=== PATIENT | male | born 1980 | race Caucasian/White ===

== ENCOUNTER 2021-08-02 08:00 | Outpatient (CLI) | payer OTHER ==
--- NOTE | 2021-08-02 17:33 | XRAY Report ---
PROCEDURE: Tib/Fib LT INDICATIONS: L LOWER LEG PX TECHNIQUE: 2 views of the tibia and fibula were acquired. COMPARISON: None FINDINGS: Bones: No fractures or dislocations. No suspicious bony lesions. Soft tissues: No suspicious soft tissue calcifications or masses. IMPRESSION: No fracture. No osseous lesion. If symptoms and/or clinical concern for pathology persists, further a ssessment with repeat plain film radiographs (7-10 days) or advanced imaging (CT, MR, bone scan) shou ld be considered. Reviewed by: Kavya Torres MD, PhD on 08/02/2021 5:32 PM PDT Approved by: Kavya Torres MD, PhD on 08/02/2021 5:32 PM PDT Station ID: [id number]
== END 2021-08-02 23:59 | disposition home or self-care (01) ==
LOC: DI.N 08:00
PROVIDERS: ATTEND Family Medicine
DX: M79.605 Pain in left leg (principal)

== ENCOUNTER 2022-08-23 02:14 | Emergency (ER) | payer OTHER ==
[2022-08-23 02:31] VITALS: BP 150/90
--- NOTE | 2022-08-23 02:33 | ED Physician Documentation ---
PD HPI URI - Stated complaint Stated Complaint: CONGESTION - Chief complaint Chief Complaint: Heent - History obtained from History obtained from: Patient - Additional information Additional information: HPI from patient. Patient c/o right maxillary sinus congestion and pain that is exacerbated with coughing and palpation (percussion). Also c/o sore throat, mild cough, rhinorrhea. Symptoms x several days but rapidly becoming markedly worse tonight. Denies dyspnea, denies fever. Review of Systems Constitutional: denies: Fever, Chills, Sweats Ears: denies: Ear pain Nose: reports: Rhinorrhea / runny nose, Congestion, Sinus pressure / pain Throat: reports: Sore throat Respiratory: reports: Cough. denies: Dyspnea PD PAST MEDICAL HISTORY - Past Medical History Past Medical History: Yes Neuro: Other Other Past Medical History: L leg sciatica - Past Surgical History Past Surgical History: No - Present Medications Home Medications: Ambulatory Orders Medication Instructions Recorded Confirmed Amox/Clav 875/125 [Augmentin 1 tablet PO Q12H 10 Days #20 tablet 08/23/22 875/125 Tab] HYDROcod/ACETAM 5/325 [Ignacio 5/325] 1 - 2 tablet PO Q6H PRN #14 tablet 08/23/22 - Allergies Allergies/Adverse Reactions: Allergies Allergy/AdvReac Type Severity Reaction Status Date / Time codeine Allergy Rash Verified 08/23/22 02:24 - Social History Does the pt smoke?: No Smoking Status: Former smoker Does the pt drink ETOH?: Yes Does the pt have substance abuse?: Yes - Immunizations Immunizations are current?: Yes - POLST Patient has POLST: No PD ED PE NORMAL - Vitals Vital signs reviewed: Yes - General General: Alert and oriented X 3, No acute distress, Well developed/nourished - HEENT HEENT: Ears normal, Moist mucous membranes, Pharynx benign - Neck Neck: Supple, no meningeal sign - Respiratory Respiratory: No respiratory distress, Clear bilaterally PD ED PE EXPANDED - HEENT HEENT: Right maxillary sinus TTP Results - Vitals Vitals: Oxygen O2 Source Room air PD Medical Decision Making - ED course Complexity details: considered differential, d/w patient ED course: H+P are c/w right maxillary sinusitis. Patient's symptoms had been improving but since earlier today, rapidly and definitively worsening. Will treat with augmentin, first dose given in ED and rx e-prescribed for same. He is given 600mg PO ibuprofen in ED with take-home vicodin to use if the ibuprofen is ineffective. Vicodin rx also e-prescribed. I am prescribing a short course of short-acting opioid pain medication for this patient. 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 I have discussed that the opioids are for short term therapy only, and will not be refilled from the ED. Departure - Departure Disposition: 01 Home, Self Care Clinical Impression: Sinusitis Qualifiers: Sinusitis location: maxillary Chronicity: acute Recurrence: not specified as recurrent Qualified Code(s): J01.00 - Acute maxillary sinusitis, unspecified Condition: Good Instructions: ED Sinusitis Abx Tx Prescriptions: Amox/Clav 875/125 [Augmentin 875/125 Tab] 1 tablet PO Q12H 10 Days #20 tablet HYDROcod/ACETAM 5/325 [Ignacio 5/325] 1 - 2 tablet PO Q6H PRN #14 tablet PRN Reason: Pain Comments: Your symptoms are consistent with sinusitis. You are given the first dose of an antibiotic (Augmentin) in the emergency department, and I have electronically submitted a prescription for a 10-day course of this antibiotic to the [facility] pharmacy in [place]. You were also given a dose of ibuprofen in the emergency department; if the ibuprofen does not adequately control your symptoms with an hour, you can take the Vicodin that was provided as a take-home pack. I have also electronically submitted a prescription for a short course of Vicodin in case [id number] medication such as ibuprofen is ineffective for your discomfort. I am prescribing a short course of narcotic pain medication for you. These are potentially dangerous and addictive medications that should be used carefully. These medications may constipate you. Take an hwyp-waq-kwijzcd stool softener (docusate) twice daily with plenty of water while taking these medications. If you go 24 hours without a bowel movement, take alry-jem-depfaqt miralax, per package instructions. Do not drink or drive while taking these medications. If you received narcotic or sedating medications while in the emergency department, do not drive for 24 hours. Store this medication in a safe, secure place and out of reach of children. It is a violation of federal law to give or sell this medication to another person or to use in a manner other than prescribed. The ED will not refill narcotic prescriptions, including prescriptions lost or stolen. To dispose of unwanted medications: 1. [facility] at [address] in [place] has a medication drop box. They accept prescription medications (in pill form) Sunday through Sunday 9:00 a.m. to 5:00 p.m. 2. [facility] accepts prescription medications (in pill form only) for disposal year round. Call for more information. 3. Contact the [facility] for the next [facility] sponsored prescription drug collection event. , [phone], or [phone]; Forms: Activity restrictions Discharge Date/Time: 08/23/22 02:59
[2022-08-23] MEDS ORDERED: IBUPROFEN 600 MG TABLET PO STA (02:48)
[2022-08-23] MEDS ORDERED: AMOX/CLAV 875 MG/125 MG TABLET PO STA (02:49)
[2022-08-23] MEDS ORDERED: HYDROcod/ACET 5/325 Prepack 4 PO STA (02:51)
== END 2022-08-23 02:59 | disposition home or self-care (01) ==
LOC: ED 02:14
DX: J01.00 Acute maxillary sinusitis, unspecified (principal); Z87.891 Personal history of nicotine dependence
CPT/HCPCS: 99282; 99283; A9270